=== PATIENT | male | born 1950 | race Caucasian/White ===

== ENCOUNTER → 2025-09-19 14:40 | Outpatient (REF) | payer MEDICARE, OTHER, SELFPAY | LOC: RCS 14:40 | PROVIDERS: ATTENDING PHYSICIAN Nurse Practitioner Acute Care; FAMILY PHYSICIAN Family Medicine | DX: I50.22 Chronic systolic (congestive) heart failure (principal); I10 Essential (primary) hypertension | CPT/HCPCS: 93306 ==